=== PATIENT | male | born 1985 | race Caucasian/White ===

== ENCOUNTER 2017-06-02 12:38 | Emergency (ER) | payer MEDICAID, OTHER ==
[2017-06-02] MEDS ORDERED: ONDANSETRON DISINTEGRATING 4 MG TAB PO ONE (14:28)
[2017-06-02] MEDS ORDERED: ACETAMINOPHEN 500 MG TAB PO ONE (14:28)
--- NOTE | 2017-06-02 14:41 | EDPHY ---
H & P Stated Complaint: FEVER, SORE THROAT Time Seen by Provider: 06/02/17 14:34 HPI/ROS: CHIEF COMPLAINT: Fever, sore throat, congestion HISTORY OF PRESENT ILLNESS: The patient is a 32-year-old healthy man who comes to the emergency department complaining of a fever, sore throat and congestion. His fever max at 102.8 yesterday. He has been taking ibuprofen today. No nausea vomiting. He does have body aches. No headache. No mental status changes. No shortness of breath. No sick contacts. He has been tolerating fluids. REVIEW OF SYSTEMS: Constitutional: See HPI EENTM: denies: blurred vision, double vision, nose congestion Respiratory: See HPI Cardiac: denies: chest pain, irregular heart rate, lightheadedness, palpitations Gastrointestinal/Abdominal: denies: abdominal pain, diarrhea, nausea, vomiting, blood streaked stools Genitourinary: denies: dysuria, frequency, hematuria, pain Musculoskeletal: denies: joint pain, muscle pain Skin: denies: lesions, rash, jaundice, bruising Neurological: denies: headache, numbness, paresthesia, tingling, dizziness, weakness Hematologic/Lymphatic: denies: blood clots, easy bleeding, easy bruising Immunologic/allergic: denies: HIV/AIDS, transplant EXAM: GENERAL: Well-appearing, well-nourished and in no acute distress. HEAD: Atraumatic, normocephalic. EYES: Pupils equal round and reactive to light, extraocular movements intact, sclera anicteric, conjunctiva are normal. ENT: TMs normal, nares patent, oropharynx clear without exudates. Moist mucous membranes. NECK: Normal range of motion, supple without lymphadenopathy or JVD. LUNGS: Breath sounds clear to auscultation bilaterally and equal. No wheezes rales or rhonchi. HEART: Regular rate and rhythm without murmurs, rubs or gallops. ABDOMEN: Soft, nontender, normoactive bowel sounds. No guarding, no rebound. No masses appreciated. BACK: No CVA tenderness, no spinal tenderness, step-offs or deformities EXTREMITIES: Normal range of motion, no pitting or edema. No clubbing or cyanosis. NEUROLOGICAL: Cranial nerves II through XII grossly intact. Normal speech, normal gait. 5/5 strength, normal movement in all extremities, normal sensation PSYCH: Normal mood, normal affect. SKIN: Warm, dry, normal turgor, no visible rashes or lesions. Source: Patient Exam Limitations: No limitations - Personal History Current Tetanus/Diphtheria Vaccine: Yes Current Tetanus Diphtheria and Acellular Pertussis (TDAP): Yes - Medical/Surgical History Hx Asthma: No Hx Chronic Respiratory Disease: No Hx Diabetes: No Hx Cardiac Disease: No Hx Renal Disease: No Hx Cirrhosis: No Hx Alcoholism: No Hx HIV/AIDS: No Hx Splenectomy or Spleen Trauma: No Other PMH: DENIES - Family History Significant Family History: No pertinent family hx - Social History Smoking Status: Never smoked Alcohol Use: Sober Drug Use: None Constitutional: Initial Vital Signs Temperature (C) 37.7 C 06/02/17 12:47 Heart Rate 53 L 06/02/17 12:47 Respiratory Rate 19 06/02/17 12:47 Blood Pressure 142/72 H 06/02/17 12:47 O2 Sat (%) 93 06/02/17 12:47 O2 Delivery Mode Room Air Allergies/Adverse Reactions: meperidine [From Demerol] Allergy (Verified 06/02/17 12:45) Home Medications: Medication Instructions Recorded Oseltamivir Phosphate [Tamiflu 75 75 mg PO BID #10 cap 06/02/17 mg (*)] Medical Decision Making ED Course/Re-evaluation: We discussed the patient's flu swab. He is close to the 48 hr marker. I will prescribe him Tamiflu. I advised rest and hydration. He understands and agrees with this plan. I also recommend that his girlfriend started the possibly get prophylactic. Differential Diagnosis: Partial list of the Differential diagnosis considered include but were not limited to; influenza, viral syndrome, RSV and although unlikely based on the history and physical exam, I also considered meningitis, sepsis. - Data Points Laboratory Results: 06/02/17 14:30 Nasal Influenza A PCR NEGATIVE FOR FLU A (NEGATIVE) Nasal Influenza B PCR FLU B DETECTED H (NEGATIVE) Medications Given: Discontinued Medications Acetaminophen (Tylenol) 1,000 mg PO EDNOW ONE Stop: 06/02/17 14:29 Last Admin: 06/02/17 14:30 Dose: 1,000 mg Ondansetron HCl (Zofran Odt) 4 mg PO EDNOW ONE Stop: 06/02/17 14:29 Last Admin: 06/02/17 14:30 Dose: 4 mg Departure - Departure Disposition: Home, Routine, Self-Care Clinical Impression: Influenza B Condition: Fair Instructions: Influenza (ED) Referrals: NONE *PRIMARY CARE P,. [Primary Care Provider] - As per Instructions Fortino Santos DO [Doctor of Osteopathy] - As per Instructions Prescriptions: Oseltamivir Phosphate [Tamiflu 75 mg (*)] 75 mg PO BID #10 cap
[2017-06-02 15:45] VITALS: BP 137/87; PULSE 98; RESP 18; TEMP 98.2; O2SAT 98
== END 2017-06-02 15:45 | disposition home or self-care (01) ==
DX: J10.1 Influenza due to other identified influenza virus with other respiratory manifestations (principal)